=== PATIENT | female | born 1995 | race Two or more races ===

== ENCOUNTER 2018-11-16 16:13 | Emergency (ER) | payer MEDICAID ==
[~2018-11-16] VITALS: Ht 160 cm; Wt 68.0 kg
[~2018-11-16 16:13] MED LIST: BCP PO; PREN1TAB60 PO
[2018-11-16] MEDS ORDERED: PREN-1 PO (16:45)
[2018-11-16 17:37] LABS: BASOPHILS # (AUTO) 0.09 x10^3/uL (0-0.1); BASOPHILS % (AUTO) 1 % (0-1); EOSINOPHILS # (AUTO) 0.28 x10^3/uL (0-0.4); EOSINOPHILS % (AUTO) 2 % (1-7); LYMPHOCYTES # (AUTO) 2.88 x10^3/uL (1-3.4); LYMPHOCYTES % (AUTO) 22 % (22-44); MD NO; MEAN CORPUSCULAR HEMOGLOBIN 29.4 pg (27.0-34.8); MEAN CORPUSCULAR HGB CONC 33.5 g/dL (32.4-35.8); MEAN CORPUSCULAR VOLUME 87.7 fL (80-100); MEAN PLATELET VOLUME 9.1 fL (7.4-10.4); MONOCYTES # (AUTO) 0.77 x10^3/uL (0.2-0.8); MONOCYTES % (AUTO) 6 % (2-9); NEUTROPHILS # (AUTO) 9.22 x10^3/uL (1.8-6.8); NEUTROPHILS % (AUTO) 70 % (42-75); PLATELET COUNT 346 x10^3/uL (130-400); RED BLOOD COUNT 4.71 x10^6/uL (3.82-5.3); RED CELL DISTRIBUTION WIDTH 13.7 % (9.6-15.2)
[2018-11-16 18:20] VITALS: BP 122/80
--- NOTE | 2018-11-16 18:21 | NUR ---
PT STATES SHE HAD TO CHANGE ONE PAD AND CRAMPS COME IN WAVES. VS UPDATED
--- NOTE | 2018-11-16 19:05 | NUR ---
RPT TO DARRELL MONROE
== END 2018-11-16 19:36 | disposition home or self-care (01) ==
LOC: ED 19:30
DX: O03.9 Complete or unspecified spontaneous abortion without complication (principal)
CPT/HCPCS: 36415; 76801; 84702; 85025; 99284

== ENCOUNTER 2019-10-12 23:58 | Emergency (ER) | payer MEDICAID ==
[~2019-10-12] VITALS: Ht 160 cm; Wt 80.7 kg
[~2019-10-12 23:58] MED LIST changes: +PREN-1 PO
[2019-10-13 00:40] LABS: BASOPHILS # (AUTO) 0.04 x10^3/uL (0-0.1); BASOPHILS % (AUTO) 0 % (0-1); EOSINOPHILS # (AUTO) 0.08 x10^3/uL (0-0.4); EOSINOPHILS % (AUTO) 1 % (1-7); LYMPHOCYTES % (AUTO) 25 % (22-44); MD NO; MEAN CORPUSCULAR HEMOGLOBIN 29.3 pg (27.0-34.8); MEAN CORPUSCULAR HGB CONC 33.3 g/dL (32.4-35.8); MONOCYTES # (AUTO) 0.71 x10^3/uL (0.2-0.8); MONOCYTES % (AUTO) 6 % (2-9); NEUTROPHILS # (AUTO) 8.34 x10^3/uL (1.8-6.8); NEUTROPHILS % (AUTO) 68 % (42-75); PLATELET COUNT 335 x10^3/uL (130-400); RED BLOOD COUNT 4.53 x10^6/uL (3.82-5.3); RED CELL DISTRIBUTION WIDTH 13.4 % (9.6-15.2)
[2019-10-13 00:47] LABS: ALANINE AMINOTRANSFERASE 30 U/L (12-78); ANION GAP 8 mmol/L (5-15); CALCIUM 9.1 mg/dL (8.5-10.1); CHLORIDE 108 mmol/L (98-107); CREATININE 0.63 mg/dL (0.55-1.02)
[2019-10-13 00:48] LABS: ALKALINE PHOSPHATASE 83 U/L (45-117); BILIRUBIN,TOTAL 0.2 mg/dL (0.2-1.0); TOTAL PROTEIN 7.3 g/dL (6.4-8.2)
[2019-10-13 01:40] LABS: MICROSCOPIC INDICATED
[2019-10-13 01:41] LABS: CULTURE INDICATED? YES
[2019-10-13 02:05] VITALS: BP 135/74
== END 2019-10-13 02:18 | disposition home or self-care (01) ==
LOC: ED 10-13 02:00
DX: O20.0 Threatened abortion (principal); R82.71 Bacteriuria; R11.0 Nausea; R51 Headache; Z90.49 Acquired absence of other specified parts of digestive tract; Z3A.16 16 weeks gestation of pregnancy
CPT/HCPCS: 36415; 76815; 80053; 81001; 85025; 86901; 87086; 99284

== ENCOUNTER 2020-03-07 10:30 | Outpatient (CLI) | payer MEDICAID ==
[~2020-03-07] VITALS: Ht 160 cm; Wt 85.0 kg
[2020-03-07 11:23] LABS: MICROSCOPIC INDICATED
== END 2020-03-07 13:15 | disposition home or self-care (01) ==
LOC: LDOP 10:30
PROVIDERS: ATTEND Obstetrics & Gynecology
DX: O41.03X0 Oligohydramnios, third trimester, not applicable or unspecified (principal); O42.913 Preterm premature rupture of membranes, unspecified as to length of time between rupture and onset of labor, third trimester; Z3A.36 36 weeks gestation of pregnancy
CPT/HCPCS: 59025; 76818; 76819; 81001; 84112; 87086; 99211; G0463

== ENCOUNTER 2020-03-09 11:14 | Inpatient (IN) | payer MEDICAID ==
[~2020-03-09] VITALS: Ht 160 cm; Wt 83.6 kg
[2020-03-09] MEDS ORDERED: LACTATED RINGERS 1,000 ML IV SCH (11:54)
[2020-03-09] MEDS ORDERED: LACTATED RINGERS 1,000 ML IVBOLUS ONE (12:00)
[2020-03-09] MEDS ORDERED: METOCLOPRAMIDE 5 MG/ML, 2ML IV ONE (12:00)
[2020-03-09] MEDS ORDERED: SODIUM CITRATE/CITRIC ACID 30 ML UDC PO ONE (12:00)
[2020-03-09 12:16] LABS: BASOPHILS # (AUTO) 0.04 x10^3/uL (0-0.1); BASOPHILS % (AUTO) 0 % (0-1); EOSINOPHILS # (AUTO) 0.06 x10^3/uL (0-0.4); EOSINOPHILS % (AUTO) 1 % (1-7); LYMPHOCYTES # (AUTO) 2.06 x10^3/uL (1-3.4); LYMPHOCYTES % (AUTO) 17 % (22-44); MD NO; MEAN CORPUSCULAR HEMOGLOBIN 28.5 pg (27.0-34.8); MEAN CORPUSCULAR HGB CONC 32.6 g/dL (32.4-35.8); MEAN CORPUSCULAR VOLUME 87.5 fL (80-100); MONOCYTES # (AUTO) 0.69 x10^3/uL (0.2-0.8); MONOCYTES % (AUTO) 6 % (2-9); NEUTROPHILS # (AUTO) 9.01 x10^3/uL (1.8-6.8); NEUTROPHILS % (AUTO) 76 % (42-75); PLATELET COUNT 289 x10^3/uL (130-400); RED BLOOD COUNT 4.39 x10^6/uL (3.82-5.3); RED CELL DISTRIBUTION WIDTH 14.9 % (9.6-15.2)
[2020-03-09] MEDS ORDERED: OXYTOCIN 30U/ 0.9% NaCL 500ML 500 ML ONE (13:09)
[2020-03-09] MEDS ORDERED: NEWBORN KIT ONE (13:09)
[2020-03-09] MEDS ORDERED: METOCLOPRAMIDE 5 MG/ML, 2ML ONE (13:09)
[2020-03-09] MEDS ORDERED: SODIUM CITRATE/CITRIC ACID 30 ML UDC ONE (13:10)
[2020-03-09] MEDS ORDERED: morphine SULFATE/PF 0.5 MG/ML, 10ML ONE (16:39)
[2020-03-09] MEDS ORDERED: SODIUM CHLORIDE 0.9% PF 10ML ONE (16:40)
[2020-03-09] MEDS ORDERED: KETOROLAC 30 MG/1 ML ONE ×2 (16:40→23:55)
[2020-03-09] MEDS ORDERED: WATER-INJECTION,STERILE 10 ML IV ONE (16:40)
[2020-03-09] MEDS ORDERED: CEFAZOLIN 1,000 MG ONE (16:40)
[2020-03-09] MEDS ORDERED: OXYTOCIN 10 UNITS/ML, 1ML ONE (16:40)
[2020-03-09] MEDS ORDERED: DEXAMETHASONE 4 MG/ML, 1ML ONE (16:40)
[2020-03-09] MEDS ORDERED: ONDANSETRON 2MG/ML, 2ML ONE (16:40)
[2020-03-09] MEDS ORDERED: PHENYLEPHRINE 10 MG/ML ONE (16:40)
[2020-03-09] MEDS: OXYTOCIN 30U/ 0.9% NaCL 500ML 500 ML IV SCH (18:28)
[2020-03-09] MEDS: LACTATED RINGERS 1,000 ML IV SCH (18:29)
[2020-03-09] MEDS ORDERED: ONDANSETRON 2MG/ML, 2ML IV PRN (18:30)
[2020-03-09] MEDS ORDERED: MISOPROSTOL 200 MCG TABLET PR PRN (18:30)
[2020-03-09] MEDS ORDERED: CALCIUM CARBONATE 500 MG TAB.CHEW PO PRN (18:30)
[2020-03-09] MEDS ORDERED: TRANEXAMIC ACID 1,000 MG in SODIUM CHLORIDE 0.9% 100 ML IVPB ONE (18:30)
[2020-03-09] MEDS ORDERED: METHYLERGONOVINE 0.2 MG/ML IM PRN (18:30)
[2020-03-09] MEDS ORDERED: CARBOPROST TROMETHAMINE 250 MCG/ML, 1ML IM PRN (18:30)
[2020-03-09] MEDS ORDERED: OXYcodone/APAP 5/325MG TABLET PO PRN (18:30)
[2020-03-09] MEDS ORDERED: morphine SULFATE 10 MG/ML, 1ML IVPush PRN (18:30)
[2020-03-09] MEDS ORDERED: SIMETHICONE 80 MG CHEW TAB PO PRN (18:30)
[2020-03-09] MEDS ORDERED: MORPHINE SULFATE 4 MG/ML, 1ML IVPush PRN (18:30)
[2020-03-09] MEDS ORDERED: ACETAMINOPHEN 325 MG TABLET PO PRN (18:30)
[2020-03-09] MEDS ORDERED: OXYcodone 5 MG/5 ML ORAL.SOL UDC ONE (19:16)
[2020-03-09] MEDS ORDERED: OXYcodone 5 MG/5 ML ORAL.SOL UDC PO PRN (19:30)
[2020-03-09 20:00] VITALS: BP 110/73
[2020-03-09] MEDS: KETOROLAC 30 MG/1 ML IVPush SCH (23:58)
[2020-03-09] MEDS: OXYcodone/APAP 5/325MG TABLET PO PRN (23:59)
[2020-03-10 00:04] VITALS: BP 109/74
[2020-03-10 01:45] LABS: BASOPHILS # (AUTO) 0.03 x10^3/uL (0-0.1); BASOPHILS % (AUTO) 0 % (0-1); EOSINOPHILS % (AUTO) 0 % (1-7); LYMPHOCYTES % (AUTO) 8 % (22-44); MD NO; MEAN CORPUSCULAR HEMOGLOBIN 29.3 pg (27.0-34.8); MEAN CORPUSCULAR HGB CONC 33.5 g/dL (32.4-35.8); MEAN CORPUSCULAR VOLUME 87.3 fL (80-100); MEAN PLATELET VOLUME 9.6 fL (7.4-10.4); MONOCYTES # (AUTO) 0.68 x10^3/uL (0.2-0.8); MONOCYTES % (AUTO) 4 % (2-9); NEUTROPHILS # (AUTO) 13.37 x10^3/uL (1.8-6.8); NEUTROPHILS % (AUTO) 87 % (42-75); PLATELET COUNT 273 x10^3/uL (130-400); RED BLOOD COUNT 3.96 x10^6/uL (3.82-5.3); RED CELL DISTRIBUTION WIDTH 14.5 % (9.6-15.2)
[2020-03-10] MEDS: LACTATED RINGERS 1,000 ML IV SCH ×5 (02:22→14:22)
[2020-03-10 04:11] VITALS: BP 111/70
[2020-03-10] MEDS: OXYTOCIN 30U/ 0.9% NaCL 500ML 500 ML IV SCH ×2 (04:22→14:22)
[2020-03-10] MEDS: KETOROLAC 30 MG/1 ML IVPush SCH ×3 (06:00→16:10)
[2020-03-10] MEDS: OXYcodone/APAP 5/325MG TABLET PO PRN ×3 (06:19→22:16)
[2020-03-10] MEDS: PRENATAL VIT/IRON/FA 1 EACH TABLET PO SCH (08:29)
[2020-03-10] MEDS: DOCUSATE 100 MG CAPSULE PO PRN ×2 (08:29→22:16)
[2020-03-10 08:30] VITALS: BP 115/73
[2020-03-10 12:25] VITALS: BP 113/73
[2020-03-10 16:15] VITALS: BP 103/68
[2020-03-10 19:15] VITALS: BP 111/69
[2020-03-10] MEDS: IBUPROFEN 600 MG TABLET PO PRN (22:20)
[2020-03-11] MEDS: IBUPROFEN 600 MG TABLET PO PRN (07:20)
[2020-03-11] MEDS: PRENATAL VIT/IRON/FA 1 EACH TABLET PO SCH (07:20)
[2020-03-11] MEDS: DOCUSATE 100 MG CAPSULE PO PRN (07:20)
[2020-03-11 07:53] VITALS: BP 104/70
[2020-03-11] MEDS ORDERED: IBUP-1222 PO (11:11)
[2020-03-11] MEDS ORDERED: OXYC-302 PO (11:12)
[2020-03-11] MEDS ORDERED: MEASLES,MUMPS&RUBELLA VACC/PF 0.5 ML SQ-VACC ONE (11:30)
[2020-03-11] MEDS ORDERED: DIPH,PERTUSS(ACELL),TET VAC/PF NC IM-VACC ONE (12:30)
== END 2020-03-11 14:17 | disposition home or self-care (01) | DRG 787 ==
LOC: LDIP 11:37 → 2NW 19:45
PROVIDERS: ADMIT Obstetrics & Gynecology; ATTEND Obstetrics & Gynecology
PROC: 10D00Z1 Extraction of Products of Conception, Low, Open Approach (ICD-10-PCS; principal; 2020-03-09)
DX: O34.211 Maternal care for low transverse scar from previous cesarean delivery (principal); O41.03X0 Oligohydramnios, third trimester, not applicable or unspecified; Z3A.36 36 weeks gestation of pregnancy; Z37.0 Single live birth
CPT/HCPCS: 36415; 82803; 85025; 86592; 86850; 86900; 88307; 90715; G0378; J0690; J1100; J1885; J2274; J2405; C1765; J2370; J2590; J2765; J7120